=== PATIENT | female | born 1985 | race African-American/Black ===

== ENCOUNTER 2018-07-10 19:10 | Emergency (ER) | payer MEDICAID ==
[~2018-07-10] VITALS: Ht 170.2 cm; Wt 56.0 kg
[2018-07-10 19:25] VITALS: BP 124/84
== END 2018-07-11 00:16 | disposition left against medical advice (07) ==
LOC: ER 19:10
DX: R07.89 Other chest pain (principal); R05 Cough; Z53.21 Procedure and treatment not carried out due to patient leaving prior to being seen by health care provider
CPT/HCPCS: 93005